=== PATIENT | male | born 1960 | race Hispanic/Latino ===

== ENCOUNTER 2022-01-08 23:34 | Inpatient (IN) | payer BC ==
[2022-01-09] MEDS ORDERED: ONDANSETRON 4 MG/2 ML INJ IV ONE (06:57)
[2022-01-09] MEDS ORDERED: MORPHINE 4 MG/1 ML INJ IV ONE (06:57)
[2022-01-09] MEDS ORDERED: SODIUM CHLORIDE 0.9% 1000 ML 1,000 ML IV ONE ×2 (06:58→10:57)
--- NOTE | 2022-01-09 07:08 | Emergency Department Report ---
HPI - General Chief Complaint: Abdominal Pain PUI?: No Time Seen by Provider: 01/09/22 06:52 - HPI HPI: 61-year-old male with prior history of hypertension (patient states he was taking a blood pressure medication by his primary care doctor) presents for evaluation of periumbilical pain radiating to his right lower quadrant. Sy mptoms began acutely last night. Pain is pressure-like constant and radiates to the aforementioned areas. He reports nausea but no vomiting fevers or chills. Last bowel movement was 1 day ago and he states "it was very small." Surgical history to his abdomen is significant for umbilical hernia repair which was performed approximately 4 years ago. No testicular pain. No UTI symptoms. No penile discharge. Abdominal pain has no aggravators or alleviators. No prior history of similar symptoms. Pain currently 8 out of 10. ED Past Medical Hx - Past Medical History Previous Medical History?: Yes Hx Hypertension: Yes - Surgical History Past Surgical History?: Yes Additional Surgical History: Umbilical hernia repair [address] [facility] - Social History Smoking Status: Smoker, Current Status Unknown Substance Use Type: None ED Review of Systems ROS: Stated complaint: RLQ ABD PAIN Other details as noted in HPI Comment: All other systems reviewed and negative Physical Exam - Physical Exam Vital Signs: Vital Signs 01/08/22 23:37 Temperature 98.6 F Pulse Rate 74 Respiratory 16 Rate Blood Pressure 130/76 [Right] O2 Sat by Pulse 98 Oximetry General: Gen: Middle-age male, uncomfortable appearing, groaning, writhing on stretcher, moderate distress secondary to pain HEENT: Normocephalic atraumatic pupils equally round and reactive to light extraocular muscles intact sclera anicteric Neck: Full range of motion, no midline spinal tenderness palpation, no JVD, no carotid bruits, no nuchal rigidity CVS: S1-S2 regular rate and rhythm with no gallops rubs or murmurs, chest wall nontender Pulmonary: Clear to auscultation bilaterally, no wheezes rales or rhonchi Abdomen: Soft nondistended moderate right lower quadrant tenderness palpation with mild guarding and positive rebound tenderness no palpable deformities or step-offs, normal active bowel sounds, no hepatosplenomegaly, no pulsatile masses : Deferred Extremities: No cyanosis no clubbing no edema, intact distal peripheral pulses, Integumentary: Skin normal, no petechia no purpura no abscess no lacerations no evidence of trauma no evidence of infection Neuro: Patient is awake alert and oriented to person place time situation, mentating well, cranial nerves II through XII intact, no focal neurodeficits, sensation grossly tact Psych: Calm cooperative, mood affect normal ED Course Vital Signs 01/08/22 23:37 Temperature 98.6 F Pulse Rate 74 Respiratory 16 Rate Blood Pressure 130/76 [Right] O2 Sat by Pulse 98 Oximetry - Consultations Consultation #1: 01/09/22 10:26 Return call received from Dr. Daniels. She is covering for . I informed her of the patient's presentation, and negative CT scan findings as well as the patient's lab works. I was informed her that the patient is tolerating p.o. here without difficulty. She states that Dr. Guevara is already aware of the case and is reviewing it and will provide an update concerning her recommended disposition for the patient. 10:10am Call received from Dr. Daniels. She states she spoke with Dr. Guevara. Per her verbal report, pt's CT is negative for acute pathology. She advises that if the pt is tolerating PO here, she may be discharged. Pt to f/u with her for outpatient evaluation of her hiatal hernia. She advises that the patient remain on a clear liquids diet. ED Medical Decision Making - Lab Data Result diagrams: 01/09/22 Unknown 01/09/22 Unknown - Medical Decision Making 61-year-old male presents for evaluation of right lower abdominal pain. Vital signs stable. Labs reviewed. CT scan of the abdomen pelvis demonstrates small bowel obstruction. Case reviewed with on-call surgeon, Dr. Daniels. See pedro luis catalan's electronic health record for her documented impression. Prior discussion, patient undergo placement of a nasogastric tube. This was done by the patient's nurse Rosemarie. Patient has been accepted to the hospitalist service for admission by Dr. Bautista. Critical Care Time: No Critical care attestation.: If time is entered above; I have spent that time in minutes in the direct care of this critically ill patient, excluding procedure time. ED Disposition Clinical Impression: Abdominal pain, Small bowel obstruction Disposition: ADMITTED INPATIENT Is pt being admited?: Yes Does the pt Need Aspirin: No Condition: Stable Referrals: PRIMARY CARE, [Primary Care Provider] - 3-5 Days
[2022-01-09 08:23] LABS: Hematocrit 46.6 % (35.5-45.6); Hemoglobin 15.7 gm/dl (11.8-15.2); Mean Corpuscular HGB Conc 34 % (32-34); Mean Corpuscular Volume 83 fl (84-94); Platelet Count 283 K/mm3 (140-440); Red Blood Count 5.59 M/mm3 (3.65-5.03)
[2022-01-09 08:37] LABS: Alanine Aminotransferase 23 units/L (7-56); BUN/Creatinine Ratio 18; Blood Urea Nitrogen 16 mg/dL (9-20); Calcium 10.4 mg/dL (8.4-10.2); Hemolysis Index 2
--- NOTE | 2022-01-09 09:19 | Cat Scan Report ---
CT ABDOMEN AND PELVIS WITH INTRAVENOUS CONTRAST INDICATION / CLINICAL INFORMATION: Periumbilical/RLQ pain x 1 day; r/o acute appendicitis. TECHNIQUE: 100 cc Omnipaque [address] scans at this location are performed using CT d ose reduction for ALARA by means of automated exposure control. COMPARISON: None available. FINDINGS: ABDOMEN: The stomach and proximal to mid small bowel are moderately dilated and fluid-filled. There i s a transition point in the upper pelvis near the midline anteriorly. No mass or bowel wall thickenin g are present. There is mild soft tissue stranding in the mesenteric fat with a trace amount of mesen teric fluid. Minimal small bowel feces is noted proximal to the transition point. I see no evidence o f free air. The liver, spleen, gallbladder, bile ducts, pancreas, adrenal glands and kidneys demonstrate no signi ficant abnormality. No adenopathy is present. No acute vascular abnormality is seen. The lung bases a re clear. PELVIS: The distal ureters, urinary bladder, prostate gland and seminal vesicles are normal. A normal appendix is present. There are multiple left colonic diverticula without acute inflammation. No abno rmal mass or fluid collection is seen. I do not identify a hernia. There are surgical changes in the lower lumbar spine. No acute osseous abnormality is present. IMPRESSION: 1. Moderate grade mid small bowel obstruction without a cause seen, likely related to adhesions. 2. No CT evidence of acute appendicitis. Signer Name: Jordan Hanley MD Signed: 01/09/2022 9:14 AM Workstation Name: [id number]
[2022-01-09 09:46] LABS: Basophils % (Manual) 0 % (0.0-1.8); Eosinophils % (Manual) 0 % (0.0-4.3); Total Cells Counted 100
[2022-01-09 09:47] LABS: Platelet Estimate Consistent w Auto; RBC Morphology Normal
--- NOTE | 2022-01-09 10:12 | Consultation ---
History of Present Illness Consult date: 01/09/22 Reason for consult: abdominal pain - History of present illness History of present illness: 61-year-old male presented to the emergency room with a 1 day history of acute onset of abdominal pain. Pain was localized mainly periumbilically into the right lower quadrant. It was rated 8 out of 10. He said he was nauseous but cannot vomit and has not had any flatus or normal bowel movement in over 24 hours. Patient said he had similar symptoms approximately 3 years ago where he was diagnosed with a small bowel obstruction and was treated conservatively with NG tube management. Patient had a CT scan of the abdomen and pelvis that showed a moderate small bowel obstruction with a transition point somewhere in the mid abdomen likely due to adhesive disease. Patient has had an NG tube since I spoke with the ER physician he says that he is feeling much better with less abdominal pain and thinks he has passed a little flatus. Patient said his previous bowel obstruction happened approximately 6 months to a year after lapa roscopic ventral hernia repair. Past History Past Medical History: hypertension Past Surgical History: Other (Ventral hernia repair laparoscopic with mesh) Social history: no significant social history Medications and Allergies Allergies Allergy/AdvReac Type Severity Reaction Status Date / Time amantadine Allergy Unknown Verified 01/08/22 23:39 Review of Systems All systems: negative - Constitutional poor appetite - Cardiovascular no chest pain - Respiratory no shortness of breath - Gastrointestinal abdominal pain, nausea - Genitourinary no dysuria Exam Vital Signs Temp Pulse Resp BP Pulse Ox 98.6 F 74 16 130/76 98 01/08/22 23:37 01/08/22 23:37 01/08/22 23:37 01/08/22 23:37 01/08/22 23:37 - General physical appearance Positive: well developed, no distress, no pain - Eyes Positive: PERRL. Negative: icteric - Respiratory Positive: normal expansion, normal respiratory effort - Cardiovascular Heart Sounds: Present: S1 & S2 - Abdomen Abdomen: Present: soft, other (Approximately 400 cc of light brown contents in NG tube and canister). Absent: tender, distended, guarding, rigid - Neurologic Neurologic: alert and oriented to time, place and person, motor strength and sensation are grossly intact - Psychiatric Psychiatric: appropriate mood/affect, intact judgment & insight Results - Labs 01/09/22 Unknown 01/09/22 Unknown Abnormal lab results 01/09/22 01/09/22 Range/Units Unknown Unknown RBC 5.59 H (3.65-5.03) M/mm3 Hgb 15.7 H (11.8-15.2) gm/dl Hct 46.6 H (35.5-45.6) % MCV 83 L (84-94) fl Seg Neuts % (Manual) 94.0 H (40.0-70.0) % Lymphocytes % (Manual) 4.0 L (13.4-35.0) % Seg Neutrophils # Man 8.1 H (1.8-7.7) K/mm3 Lymphocytes # (Manual) 0.3 L (1.2-5.4) K/mm3 Sodium 146 H (137-145) mmol/L Glucose 169 H (75-100) mg/dL Calcium 10.4 H (8.4-10.2) mg/dL Diabetes panel 01/09/22 Range/Units Unknown Sodium 146 H (137-145) mmol/L Potassium 4.7 (3.6-5.0) mmol/L Chloride 106.7 (98-107) mmol/L Carbon Dioxide 28 (22-30) mmol/L BUN 16 (9-20) mg/dL Creatinine 0.9 (0.8-1.3) mg/dL Glucose 169 H (75-100) mg/dL Calcium 10.4 H (8.4-10.2) mg/dL AST 18 (5-40) units/L ALT 23 (7-56) units/L Alkaline Phosphatase 60 (35-129) units/L Total Protein 6.8 (6.3-8.2) g/dL Albumin 5.0 (3.9-5) g/dL Calcium panel 01/09/22 Range/Units Unknown Calcium 10.4 H (8.4-10.2) mg/dL Albumin 5.0 (3.9-5) g/dL Pituitary panel 01/09/22 Range/Units Unknown Sodium 146 H (137-145) mmol/L Potassium 4.7 (3.6-5.0) mmol/L Chloride 106.7 (98-107) mmol/L Carbon Dioxide 28 (22-30) mmol/L BUN 16 (9-20) mg/dL Creatinine 0.9 (0.8-1.3) mg/dL Glucose 169 H (75-100) mg/dL Calcium 10.4 H (8.4-10.2) mg/dL Adrenal panel 01/09/22 Range/Units Unknown Sodium 146 H (137-145) mmol/L Potassium 4.7 (3.6-5.0) mmol/L Chloride 106.7 (98-107) mmol/L Carbon Dioxide 28 (22-30) mmol/L BUN 16 (9-20) mg/dL Creatinine 0.9 (0.8-1.3) mg/dL Glucose 169 H (75-100) mg/dL Calcium 10.4 H (8.4-10.2) mg/dL Total Bilirubin 0.40 (0.1-1.2) mg/dL AST 18 (5-40) units/L ALT 23 (7-56) units/L Alkaline Phosphatase 60 (35-129) units/L Total Protein 6.8 (6.3-8.2) g/dL Albumin 5.0 (3.9-5) g/dL - Imaging CT scan - abdomen: report reviewed, image reviewed CT scan - pelvis: report reviewed, image reviewed Assessment and Plan 61-year-old male with acute small bowel obstruction likely due to adhesive disease due to history and previous episode. Patient is afebrile and stable showing no gross clinical signs of bowel ischemia or perforation. We will continue conservative management with NG tube. Repeat abdominal x-ray in a.m. and continue to follow. If patient decompensates or has minimal improvement over the next 48 to 72 hours surgical intervention should be strongly considered. Pathology and treatment options were discussed with the patient expressed understanding.
--- NOTE | 2022-01-09 11:06 | XRay Report ---
ABDOMEN 1 VIEW(S) INDICATION / CLINICAL INFORMATION: placement check. COMPARISON: None available. FINDINGS: TUBES / LINES: Nasogastric tube is been inserted which terminates in the gastric fundus BOWEL GAS PATTERN: Persistent dilated stomach and multiple small bowel loops suggesting partial small bowel obstruction. Not significantly changed since the CT performed earlier today. FREE AIR / EXTRALUMINAL GAS: None seen. ADDITIONAL FINDINGS: No significant additional findings. IMPRESSION: Nasogastric tube terminates in the fundus of the stomach. Persistent partial small bowel obstruction pattern. Signer Name: Julio Fleming Jr, MD Signed: 01/09/2022 11:02 AM Workstation Name: [id number]
[2022-01-09] MEDS ORDERED: KETOROLAC 30 MG/1 ML INJ IV ONE (16:46)
[2022-01-09] MEDS ORDERED: D5W/0.9% NACL 1,000 ML IV SCH (17:00)
[2022-01-09] MEDS ORDERED: MORPHINE 2 MG/1 ML INJ IV PRN (17:00)
[2022-01-09] MEDS ORDERED: ACETAMINOPHEN 650 MG RECT SUPP PR PRN (17:30)
[2022-01-09] MEDS ORDERED: ONDANSETRON 4 MG/2 ML INJ IV PRN (17:30)
[2022-01-09 21:02] LABS: Mucus,Urine FEW /HPF; WBC,Urine < 1.0 /HPF (0.0-6.0)
[2022-01-09 21:09] LABS: Color,Urine Yellow (Yellow)
[2022-01-09] MEDS: HEPARIN 5,000 UNIT/1 ML VIAL SUB-Q SCH (21:16)
--- NOTE | 2022-01-10 06:42 | History and Physical Report ---
History of Present Illness Date of examination: 01/09/22 Date of admission: 01/09/22 16:35 Chief complaint: Abdominal pain and vomiting for 1 day History of present illness: 61-year-old male with past medical history of hypertension and umbilical hernia surgery followed by elevation and history of small bowel obstruction recently comes in for abdominal pain and nausea. Abdominal pain is about 8 on a scale of 1-10. Intermittent in nature. Last bowel movement was 1 day ago. Unlikely hernia repair was performed approximately 4 years ago. Had 1 episode of small bowel obstruction few months ago. Patient not able to review the timeline. Reports nausea but no vomiting. No fever or chills. No dysuria. No altered sensorium. No chest pain. - Past Medical History --Hypertension: Yes - Surgical History --Past Surgical History?: Yes --Additional Surgical History: Umbilical hernia repair 4 years ago at - Social History --Smoking Status: Smoker, Current Status Unknown --Substance Use Type: None -Family history --Htn Review of Systems --ROS: -Constitutional no weight loss or weight gain no fever or chills HEENT no sore throat no post nasal drip no diplopia Neck no neck stiffness no lymph gland enlargement Chest and lungs no shortness of breath cough or wheezing CVS no chest pain no diaphoresis no palpitations GI severe abdominal pain with nausea Genitourinary system no dysuria no flank pain Musculoskeletal system no muscle pains no joint pains CSO no syncope no seizures Skin no rash no itching Psychiatric no depression no homicidal or suicidal tendencies Hematologic no lymphedema or bruising Endocrine no polydipsia no polyuria no cold intolerance no heat intolerance Past History Past Medical History: hypertension Past Surgical History: Other (Ventral hernia repair laparoscopic with mesh) Social history: no significant social history Medications and Allergies Allergies Allergy/AdvReac Type Severity Reaction Status Date / Time amantadine Allergy Unknown Verified 01/08/22 23:39 Home Medications Medication Instructions Recorded Confirmed Last Taken Type No Known Home Medications [No 01/10/22 01/10/22 Unknown History Reported Home Medications] Active Meds: Active Medications Acetaminophen (Acetaminophen 650 Mg Rect Supp) 650 mg MI Q4H PRN PRN Reason: Pain MILD(1-3)/Fever >100.5/KAN Heparin Sodium (Porcine) (Heparin 5,000 Unit/1 Ml Vial) 5,000 unit SUB-Q Q12HR [facility] Last Admin: 01/09/22 21:16 Dose: 5,000 unit Lactated Ringer's (Lactated Ringers) 1,000 mls @ 125 mls/hr IV DIRECT BESS Dextrose/Sodium Chloride (D5ns) 1,000 mls @ 100 mls/hr IV DIRECT BESS Last Admin: 01/09/22 22:45 Dose: 100 mls/hr Morphine Sulfate (Morphine 2 Mg/1 Ml Inj) 2 mg IV Q4H PRN PRN Reason: Pain, Moderate (4-6) Ondansetron HCl (Ondansetron 4 Mg/2 Ml Inj) 4 mg IV Q8H PRN PRN Reason: Nausea And Vomiting Sodium Chloride (Sodium Chloride 0.9% 10 Ml Flush Syringe) 10 ml IV BID [facility] Last Admin: 01/09/22 22:46 Dose: 10 ml Sodium Chloride (Sodium Chloride 0.9% 10 Ml Flush Syringe) 10 ml IV PRN PRN PRN Reason: LINE FLUSH Stop: 01/14/22 16:34 Exam - Constitutional Vitals: Temp Pulse Resp BP Pulse Ox 98.1 F 64 18 135/84 99 01/10/22 05:30 01/10/22 05:30 01/10/22 05:30 01/10/22 05:30 01/10/22 05:30 General appearance: Present: mild distress, well-nourished - EENT Eyes: Present: PERRL ENT: hearing intact, clear oral mucosa - Neck Neck: Present: supple, normal ROM - Respiratory Respiratory effort: normal Respiratory: bilateral: CTA - Cardiovascular Heart rate: 88 Rhythm: regular Heart Sounds: Present: S1 & S2. Absent: rub, click - Extremities Extremities: no ischemia, pulses intact, pulses symmetrical, No edema Peripheral Pulses: within normal limits - Abdominal General gastrointestinal: Present: soft, non-tender, tender, distended, hypoactive bowel sounds Male genitourinary: Present: normal - Integumentary Integumentary: Present: clear, warm, dry - Musculoskeletal Musculoskeletal: gait normal, strength equal bilaterally - Psychiatric Psychiatric: appropriate mood/affect, intact judgment & insight - Neurologic Neurologic: CNII-XII intact, moves all extremities - Allied Health Allied health notes reviewed: nursing Results - Labs CBC & Chem 7: 01/09/22 Unknown 01/09/22 Unknown Labs: Laboratory Last Values WBC 8.6 K/mm3 (4.5-11.0) 01/09/22 Unknown RBC 5.59 M/mm3 (3.65-5.03) H 01/09/22 Unknown Hgb 15.7 gm/dl (11.8-15.2) H 01/09/22 Unknown Hct 46.6 % (35.5-45.6) H 01/09/22 Unknown MCV 83 fl (84-94) L 01/09/22 Unknown MCH 28 pg (28-32) 01/09/22 Unknown MCHC 34 % (32-34) 01/09/22 Unknown RDW 14.0 % (13.2-15.2) 01/09/22 Unknown Plt Count 283 K/mm3 (140-440) 01/09/22 Unknown Add Manual Diff Complete 01/09/22 Unknown Total Counted 100 01/09/22 Unknown Seg Neutrophils % Scale Tester 01/09/22 Unknown Seg Neuts % (Manual) 94.0 % (40.0-70.0) H 01/09/22 Unknown Band Neutrophils % 0 % 01/09/22 Unknown Lymphocytes % (Manual) 4.0 % (13.4-35.0) L 01/09/22 Unknown Reactive Lymphs % (Man) 0 % 01/09/22 Unknown Monocytes % (Manual) 2.0 % (0.0-7.3) 01/09/22 Unknown Eosinophils % (Manual) 0 % (0.0-4.3) 01/09/22 Unknown Basophils % (Manual) 0 % (0.0-1.8) 01/09/22 Unknown Metamyelocytes % 0 % 01/09/22 Unknown Myelocytes % 0 % 01/09/22 Unknown Promyelocytes % 0 % 01/09/22 Unknown Blast Cells % 0 % 01/09/22 Unknown Nucleated RBC % Not Reportable 01/09/22 Unknown Seg Neutrophils # Man 8.1 K/mm3 (1.8-7.7) H 01/09/22 Unknown Band Neutrophils # 0.0 K/mm3 01/09/22 Unknown Lymphocytes # (Manual) 0.3 K/mm3 (1.2-5.4) L 01/09/22 Unknown Abs React Lymphs (Man) 0.0 K/mm3 01/09/22 Unknown Monocytes # (Manual) 0.2 K/mm3 (0.0-0.8) 01/09/22 Unknown Eosinophils # (Manual) 0.0 K/mm3 (0.0-0.4) 01/09/22 Unknown Basophils # (Manual) 0.0 K/mm3 (0.0-0.1) 01/09/22 Unknown Metamyelocytes # 0.0 K/mm3 01/09/22 Unknown Myelocytes # 0.0 K/mm3 01/09/22 Unknown Promyelocytes # 0.0 K/mm3 01/09/22 Unknown Blast Cells # 0.0 K/mm3 01/09/22 Unknown WBC Morphology Not Reportable 01/09/22 Unknown Hypersegmented Neuts Not Reportable 01/09/22 Unknown Hyposegmented Neuts Not Reportable 01/09/22 Unknown Hypogranular Neuts Not Reportable 01/09/22 Unknown Smudge Cells Not Reportable 01/09/22 Unknown Toxic Granulation Not Reportable 01/09/22 Unknown Toxic Vacuolation Not Reportable 01/09/22 Unknown Dohle Bodies Not Reportable 01/09/22 Unknown Pelger-Huet Anomaly Not Reportable 01/09/22 Unknown Alvaro Rods Not Reportable 01/09/22 Unknown Platelet Estimate Consistent w auto 01/09/22 Unknown Clumped Platelets Not Reportable 01/09/22 Unknown Plt Clumps, EDTA Not Reportable 01/09/22 Unknown Large Platelets Not Reportable 01/09/22 Unknown Giant Platelets Not Reportable 01/09/22 Unknown Platelet Satelliting Not Reportable 01/09/22 Unknown Plt Morphology Comment Not Reportable 01/09/22 Unknown RBC Morphology Normal 01/09/22 Unknown Dimorphic RBCs Not Reportable 01/09/22 Unknown Polychromasia Not Reportable 01/09/22 Unknown Hypochromasia Not Reportable 01/09/22 Unknown Poikilocytosis Not Reportable 01/09/22 Unknown Anisocytosis Not Reportable 01/09/22 Unknown Microcytosis Not Reportable 01/09/22 Unknown Macrocytosis Not Reportable 01/09/22 Unknown Spherocytes Not Reportable 01/09/22 Unknown Pappenheimer Bodies Not Reportable 01/09/22 Unknown Sickle Cells Not Reportable 01/09/22 Unknown Target Cells Not Reportable 01/09/22 Unknown Tear Drop Cells Not Reportable 01/09/22 Unknown Ovalocytes Not Reportable 01/09/22 Unknown Helmet Cells Not Reportable 01/09/22 Unknown [place] Bodies Not Reportable 01/09/22 Unknown [place] Rings Not Reportable 01/09/22 Unknown El Cells Not Reportable 01/09/22 Unknown Bite Cells Not Reportable 01/09/22 Unknown Crenated Cell Not Reportable 01/09/22 Unknown Elliptocytes Not Reportable 01/09/22 Unknown Acanthocytes (Spur) Not Reportable 01/09/22 Unknown Rouleaux Not Reportable 01/09/22 Unknown Hemoglobin C Crystals Not Reportable 01/09/22 Unknown Schistocytes Not Reportable 01/09/22 Unknown Malaria parasites Not Reportable 01/09/22 Unknown Greg Bodies Not Reportable 01/09/22 Unknown Hem Pathologist Commnt No 01/09/22 Unknown Sodium 146 mmol/L (137-145) H 01/09/22 Unknown Potassium 4.7 mmol/L (3.6-5.0) 01/09/22 Unknown Chloride 106.7 mmol/L (98-107) 01/09/22 Unknown Carbon Dioxide 28 mmol/L (22-30) 01/09/22 Unknown Anion Gap 16 mmol/L 01/09/22 Unknown BUN 16 mg/dL (9-20) 01/09/22 Unknown Creatinine 0.9 mg/dL (0.8-1.3) 01/09/22 Unknown Estimated GFR > 60 ml/min 01/09/22 Unknown BUN/Creatinine Ratio 18 % 01/09/22 Unknown Glucose 169 mg/dL (75-100) H 01/09/22 Unknown Calcium 10.4 mg/dL (8.4-10.2) H 01/09/22 Unknown Total Bilirubin 0.40 mg/dL (0.1-1.2) 01/09/22 Unknown AST 18 units/L (5-40) 01/09/22 Unknown ALT 23 units/L (7-56) 01/09/22 Unknown Alkaline Phosphatase 60 units/L (35-129) 01/09/22 Unknown Total Protein 6.8 g/dL (6.3-8.2) 01/09/22 Unknown Albumin 5.0 g/dL (3.9-5) 01/09/22 Unknown Albumin/Globulin Ratio 2.8 % 01/09/22 Unknown Urine Color Yellow (Yellow) 01/09/22 Unknown Urine Turbidity Clear (Clear) 01/09/22 Unknown Specific [place] (Man) 1.015 (1.003-1.030) 01/09/22 Unknown Ur Protein (Man) 1+ mg/dL (Negative) 01/09/22 Unknown Ur Ketones (Man) Negative (Negative) 01/09/22 Unknown Ur Nitrite (Man) Negative (Negative) 01/09/22 Unknown Ur Reducing Substances Not Reportable 01/09/22 Unknown Urine Bilirubin (Man) Negative (Negative) 01/09/22 Unknown Urine Ictotest Not Reportable 01/09/22 Unknown Leukocyte Esterase (Man) Negative (Negative) 01/09/22 Unknown Urine WBC (Auto) < 1.0 /HPF (0.0-6.0) 01/09/22 Unknown Urine RBC (Auto) 2.0 /HPF (0.0-6.0) 01/09/22 Unknown Urine RBC (Manual) Negative (Negative) 01/09/22 Unknown Urine Mucus Few /HPF 01/09/22 Unknown Short CBC 01/09/22 Range/Units Unknown WBC 8.6 (4.5-11.0) K/mm3 Hgb 15.7 H (11.8-15.2) gm/dl Hct 46.6 H (35.5-45.6) % Plt Count 283 (140-440) K/mm3 BMP 01/09/22 Unknown Sodium 146 H Potassium 4.7 Chloride 106.7 Carbon Dioxide 28 BUN 16 Creatinine 0.9 Glucose 169 H Calcium 10.4 H Liver Function 01/09/22 Range/Units Unknown Total Bilirubin 0.40 (0.1-1.2) mg/dL AST 18 (5-40) units/L ALT 23 (7-56) units/L Alkaline Phosphatase 60 (35-129) units/L Albumin 5.0 (3.9-5) g/dL Urine 01/09/22 Range/Units Unknown Urine Color Yellow (Yellow) - Imaging and Cardiology Abdominal x-ray: report reviewed CT scan - abdomen: report reviewed Imaging and Cardiology: Abdomen/pelvis CT scan Moderate grade mild mid small bowel obstruction without a cause seen likely re lated to adhesions No CT evidence of acute appendicitis Abdominal x-ray Nasogastric tube terminates in the fundus of the stomach. Persistent partial small bowel obstruction pattern. Poe/IV: Voiding Method Toilet Assessment and Plan Advance Directives: Yes (Full code) VTE prophylaxis?: Chemical Plan of care discussed with patient/family: Yes - Patient Problems (1) Small bowel obstruction Current Visit: Yes Status: Acute Plan to address problem: NG tube to low Gomco suction Surgery consulted Possible additions causing small bowel obstruction Conservative management for now Surgery if necessary for lysis of additions (2) Hypernatremia Current Visit: Yes Status: Acute Plan to address problem: IV fluids for now (3) Hyperglycemia Current Visit: Yes Status: Acute Plan to address problem: Mild No history of diabetes Coverage for now Check hemoglobin A1c (4) Polycythemia due to fall in plasma volume Current Visit: Yes Status: Acute Plan to address problem: IV fluids for now (5) Hypertension Current Visit: Yes Status: Chronic Qualifiers: Hypertension type: primary hypertension Qualified Code(s): I10 - Essential (primary) hypertension Plan to address problem: Catapres patch if necessary Patient is n.p.o. (6) DVT prophylaxis Current Visit: Yes Status: Acute Plan to address problem: On heparin and GI prophylaxis (7) Advance care planning Current Visit: Yes Status: Acute Plan to address problem: Disease education conducted, care plan discussed, prognosis and diagnosis disc ussed. Patient is full code. Patient acknowledges understanding with care plan. +30 minutes.
--- NOTE | 2022-01-10 08:30 | XRay Report ---
ABDOMEN 1 VIEW 01/10/2022 8:06 AM INDICATION / CLINICAL INFORMATION: f/u sbo. COMPARISON: 01/09/22 FINDINGS: TUBES / LINES: Esophagogastric tube in the distal stomach. BOWEL GAS PATTERN: Interval improvement in mildly dilated loops of small bowel. Normal amount of gas and fecal material in the rectum. FREE AIR / EXTRALUMINAL GAS: None. ADDITIONAL FINDINGS: No significant additional findings. IMPRESSION: 1. Interval improvement in small bowel obstruction. Signer Name: Suleman Anderson MD Signed: 01/10/2022 8:26 AM Workstation Name: [id number]
--- NOTE | 2022-01-10 08:39 | Progress Note ---
Assessment and Plan Assessment and plan: 61-year-old male with past medical history of hypertension and umbilical hernia surgery followed by elevation and history of small bowel obstruction recently comes in for abdominal pain and nausea. Abdominal pain is about 8 on a scale of 1-10. Intermittent in nature. Last bowel movement was 1 day ago. Unlikely hernia repair was performed approximately 4 years ago. Had 1 episode of small bowel obstruction few months ago. Patient not able to review the timeline. Reports nausea but no vomiting. No fever or chills. No dysuria. No altered sensorium. No chest pain. - Past Medical History --Hypertension: Yes - Surgical History --Past Surgical History?: Yes --Additional Surgical History: Umbilical hernia repair 4 years ago at [facility] - Social History --Smoking Status: Smoker, Current Status Unknown --Substance Use Type: None - Imaging and Cardiology Abdominal x-ray: report reviewed CT scan - abdomen: report reviewed Imaging and Cardiology: Abdomen/pelvis CT scan Moderate grade mild mid small bowel obstruction without a cause seen likely related to adhesions No CT evidence of acute appendicitis Abdominal x-ray Nasogastric tube terminates in the fundus of the stomach. Persistent partial small bowel obstruction pattern. 01/10: KUB- IMPRESSION: 1. Interval improvement in small bowel obstruction. per surgery recommendation: 61-year-old male with acute small bowel obstruction likely due to adhesive disease due to history and previous episode. Patient is afebrile and stable showing no gross clinical signs of bowel ischemia or perforation. We will cont inue conservative management with NG tube. Repeat abdominal x-ray in a.m. and continue to follow. If patient decompensates or has minimal improvement over the next 48 to 72 hours surgical intervention should be strongly considered. Pathology and treatment options were discussed with the patient expressed understanding. 01/10: Patient seen and examined had extensive discussion with the patient discussed recommendations by GI as noted above. KUB today shows interval improvement in small bowel obstruction. Encourage patient to ambulate in the room within reason. We will continue to monitor and hopefully will transition off the NG tube on diet as soon as possible. (1) Small bowel obstruction Current Visit: Yes Status: Acute Plan to address problem: NG tube to low Gomco suction Surgery consulted Possible additions causing small bowel obstruction Conservative management for now Surgery if necessary for lysis of additions (2) Hypernatremia Current Visit: Yes Status: Acute Plan to address problem: IV fluids for now (3) Hyperglycemia Current Visit: Yes Status: Acute Plan to address problem: Mild No history of diabetes Coverage for now Check hemoglobin A1c (4) Polycythemia due to fall in plasma volume Current Visit: Yes Status: Acute Plan to address problem: IV fluids for now (5) Hypertension Current Visit: Yes Status: Chronic Qualifiers: Hypertension type: primary hypertension Qualified Code(s): I10 - Essential (primary) hypertension Plan to address problem: Catapres patch if necessary Patient is n.p.o. (6) DVT prophylaxis Current Visit: Yes Status: Acute Plan to address problem: On heparin and GI prophylaxis (7) Advance care planning Current Visit: Yes Status: Acute Plan to address problem: Disease education conducted, care plan discussed, prognosis and diagnosis discussed. Patient is full code. Patient acknowledges understanding with care plan. +30 minutes. History Interval history: Patient seen and examined reports improvement in abdominal discomfort reports that he has had multiple gas episode. Hospitalist Physical - Physical exam Narrative exam: VITAL SIGNS: Reviewed. GENERAL: The patient appears normally developed, NG tube in place. Vital signs as documented. HEAD: No signs of head trauma. EYES: Pupils are equal. Extraocular motions intact. EARS: Hearing grossly intact. MOUTH: Oropharynx is normal. NECK: No adenopathy, no JVD. CHEST: Chest with clear breath sounds bilaterally. No wheezes, rales, or rhonchi. CARDIAC: Regular rate and rhythm. S1 and S2, without murmurs, gallops, or rubs. VASCULAR: No Edema. Peripheral pulses normal and equal in all extremities. ABDOMEN: Soft, non tender and non distended. No rebound or guarding, and no masses palpated. Bowel Sounds normal. MUSCULOSKELETAL: Good range of motion of all major joints. Extremities without clubbing, cyanosis or edema. NEUROLOGIC EXAM: Alert and oriented x 3 No focal sensory or strength de ficits. Speech normal. Follows commands. PSYCHIATRIC: Mood normal. SKIN: detail exam as documented in skin assessment - Constitutional Vitals: Temp Pulse Resp BP Pulse Ox 98.1 F 64 18 135/84 99 01/10/22 05:30 01/10/22 05:30 01/10/22 05:30 01/10/22 05:30 01/10/22 05:30 General appearance: Present: mild distress, well-nourished Results - Labs CBC & Chem 7: 01/10/22 08:27 01/10/22 08:27 Labs: Laboratory Last Values WBC 8.6 K/mm3 (4.5-11.0) 01/09/22 Unknown RBC 5.59 M/mm3 (3.65-5.03) H 01/09/22 Unknown Hgb 15.7 gm/dl (11.8-15.2) H 01/09/22 Unknown Hct 46.6 % (35.5-45.6) H 01/09/22 Unknown MCV 83 fl (84-94) L 01/09/22 Unknown MCH 28 pg (28-32) 01/09/22 Unknown MCHC 34 % (32-34) 01/09/22 Unknown RDW 14.0 % (13.2-15.2) 01/09/22 Unknown Plt Count 283 K/mm3 (140-440) 01/09/22 Unknown Add Manual Diff Complete 01/09/22 Unknown Total Counted 100 01/09/22 Unknown Seg Neutrophils % Debt Recovery Officer 01/09/22 Unknown Seg Neuts % (Manual) 94.0 % (40.0-70.0) H 01/09/22 Unknown Band Neutrophils % 0 % 01/09/22 Unknown Lymphocytes % (Manual) 4.0 % (13.4-35.0) L 01/09/22 Unknown Reactive Lymphs % (Man) 0 % 01/09/22 Unknown Monocytes % (Manual) 2.0 % (0.0-7.3) 01/09/22 Unknown Eosinophils % (Manual) 0 % (0.0-4.3) 01/09/22 Unknown Basophils % (Manual) 0 % (0.0-1.8) 01/09/22 Unknown Metamyelocytes % 0 % 01/09/22 Unknown Myelocytes % 0 % 01/09/22 Unknown Promyelocytes % 0 % 01/09/22 Unknown Blast Cells % 0 % 01/09/22 Unknown Nucleated RBC % Not Reportable 01/09/22 Unknown Seg Neutrophils # Man 8.1 K/mm3 (1.8-7.7) H 01/09/22 Unknown Band Neutrophils # 0.0 K/mm3 01/09/22 Unknown Lymphocytes # (Manual) 0.3 K/mm3 (1.2-5.4) L 01/09/22 Unknown Abs React Lymphs (Man) 0.0 K/mm3 01/09/22 Unknown Monocytes # (Manual) 0.2 K/mm3 (0.0-0.8) 01/09/22 Unknown Eosinophils # (Manual) 0.0 K/mm3 (0.0-0.4) 01/09/22 Unknown Basophils # (Manual) 0.0 K/mm3 (0.0-0.1) 01/09/22 Unknown Metamyelocytes # 0.0 K/mm3 01/09/22 Unknown Myelocytes # 0.0 K/mm3 01/09/22 Unknown Promyelocytes # 0.0 K/mm3 01/09/22 Unknown Blast Cells # 0.0 K/mm3 01/09/22 Unknown WBC Morphology Not Reportable 01/09/22 Unknown Hypersegmented Neuts Not Reportable 01/09/22 Unknown Hyposegmented Neuts Not Reportable 01/09/22 Unknown Hypogranular Neuts Not Reportable 01/09/22 Unknown Smudge Cells Not Reportable 01/09/22 Unknown Toxic Granulation Not Reportable 01/09/22 Unknown Toxic Vacuolation Not Reportable 01/09/22 Unknown Dohle Bodies Not Reportable 01/09/22 Unknown Pelger-Huet Anomaly Not Reportable 01/09/22 Unknown Alvaro Rods Not Reportable 01/09/22 Unknown Platelet Estimate Consistent w auto 01/09/22 Unknown Clumped Platelets Not Reportable 01/09/22 Unknown Plt Clumps, EDTA Not Reportable 01/09/22 Unknown Large Platelets Not Reportable 01/09/22 Unknown Giant Platelets Not Reportable 01/09/22 Unknown Platelet Satelliting Not Reportable 01/09/22 Unknown Plt Morphology Comment Not Reportable 01/09/22 Unknown RBC Morphology Normal 01/09/22 Unknown Dimorphic RBCs Not Reportable 01/09/22 Unknown Polychromasia Not Reportable 01/09/22 Unknown Hypochromasia Not Reportable 01/09/22 Unknown Poikilocytosis Not Reportable 01/09/22 Unknown Anisocytosis Not Reportable 01/09/22 Unknown Microcytosis Not Reportable 01/09/22 Unknown Macrocytosis Not Reportable 01/09/22 Unknown Spherocytes Not Reportable 01/09/22 Unknown Pappenheimer Bodies Not Reportable 01/09/22 Unknown Sickle Cells Not Reportable 01/09/22 Unknown Target Cells Not Reportable 01/09/22 Unknown Tear Drop Cells Not Reportable 01/09/22 Unknown Ovalocytes Not Reportable 01/09/22 Unknown Helmet Cells Not Reportable 01/09/22 Unknown [place] Bodies Not Reportable 01/09/22 Unknown Jolley Rings Not Reportable 01/09/22 Unknown Delta Cells Not Reportable 01/09/22 Unknown Bite Cells Not Reportable 01/09/22 Unknown Crenated Cell Not Reportable 01/09/22 Unknown Elliptocytes Not Reportable 01/09/22 Unknown Acanthocytes (Spur) Not Reportable 01/09/22 Unknown Rouleaux Not Reportable 01/09/22 Unknown Hemoglobin C Crystals Not Reportable 01/09/22 Unknown Schistocytes Not Reportable 01/09/22 Unknown Malaria parasites Not Reportable 01/09/22 Unknown Greg Bodies Not Reportable 01/09/22 Unknown Hem Pathologist Commnt No 01/09/22 Unknown Sodium 146 mmol/L (137-145) H 01/09/22 Unknown Potassium 4.7 mmol/L (3.6-5.0) 01/09/22 Unknown Chloride 106.7 mmol/L (98-107) 01/09/22 Unknown Carbon Dioxide 28 mmol/L (22-30) 01/09/22 Unknown Anion Gap 16 mmol/L 01/09/22 Unknown BUN 16 mg/dL (9-20) 01/09/22 Unknown Creatinine 0.9 mg/dL (0.8-1.3) 01/09/22 Unknown Estimated GFR > 60 ml/min 01/09/22 Unknown BUN/Creatinine Ratio 18 % 01/09/22 Unknown Glucose 169 mg/dL (75-100) H 01/09/22 Unknown Calcium 10.4 mg/dL (8.4-10.2) H 01/09/22 Unknown Total Bilirubin 0.40 mg/dL (0.1-1.2) 01/09/22 Unknown AST 18 units/L (5-40) 01/09/22 Unknown ALT 23 units/L (7-56) 01/09/22 Unknown Alkaline Phosphatase 60 units/L (35-129) 01/09/22 Unknown Total Protein 6.8 g/dL (6.3-8.2) 01/09/22 Unknown Albumin 5.0 g/dL (3.9-5) 01/09/22 Unknown Albumin/Globulin Ratio 2.8 % 01/09/22 Unknown Urine Color Yellow (Yellow) 01/09/22 Unknown Urine Turbidity Clear (Clear) 01/09/22 Unknown Specific Iron (Man) 1.015 (1.003-1.030) 01/09/22 Unknown Ur Protein (Man) 1+ mg/dL (Negative) 01/09/22 Unknown Ur Ketones (Man) Negative (Negative) 01/09/22 Unknown Ur Nitrite (Man) Negative (Negative) 01/09/22 Unknown Ur Reducing Substances Not Reportable 01/09/22 Unknown Urine Bilirubin (Man) Negative (Negative) 01/09/22 Unknown Urine Ictotest Not Reportable 01/09/22 Unknown Leukocyte Esterase (Man) Negative (Negative) 01/09/22 Unknown Urine WBC (Auto) < 1.0 /HPF (0.0-6.0) 01/09/22 Unknown Urine RBC (Auto) 2.0 /HPF (0.0-6.0) 01/09/22 Unknown Urine RBC (Manual) Negative (Negative) 01/09/22 Unknown Urine Mucus Few /HPF 01/09/22 Unknown Poe/IV: Voiding Method Toilet Active Medications - Current Medications Current Medications: Generic Name Dose Route Start Last Admin Trade Name Freq PRN Reason Stop Dose Admin Acetaminophen 650 mg 01/09/22 17:30 Acetaminophen 650 Mg Rect Supp AR Q4H PRN Pain MILD(1-3)/Fever >100.5/KAN Heparin Sodium (Porcine) 5,000 unit 01/09/22 22:00 01/09/22 21:16 Heparin 5,000 Unit/1 Ml Vial SUB-Q 5,000 unit Q12HR BESS Administration Lactated Ringer's 1,000 mls @ 125 mls/hr 01/09/22 16:30 Lactated Ringers IV DIRECT BESS Dextrose/Sodium Chloride 1,000 mls @ 100 mls/hr 01/09/22 17:00 01/09/22 22:45 D5ns IV 100 mls/hr DIRECT BESS Administration Insulin Human Lispro 0 unit 01/10/22 07:00 Insulin Lispro 100 Unit/Ml SUB-Q Q6HR BESS Protocol Morphine Sulfate 2 mg 01/09/22 17:00 Morphine 2 Mg/1 Ml Inj IV Q4H PRN Pain, Moderate (4-6) Ondansetron HCl 4 mg 01/09/22 17:30 Ondansetron 4 Mg/2 Ml Inj IV Q8H PRN Nausea And Vomiting Sodium Chloride 10 ml 01/09/22 22:00 01/09/22 22:46 Sodium Chloride 0.9% 10 Ml Flush Syringe IV 10 ml BID BESS Administration Sodium Chloride 10 ml 01/09/22 16:35 Sodium Chloride 0.9% 10 Ml Flush Syringe IV 01/14/22 16:34 PRN PRN LINE FLUSH
[2022-01-10] MEDS: LACTATED RINGERS 1,000 ML IV SCH ×2 (09:05→22:27)
[2022-01-10 10:08] LABS: Basophils # (Auto) 0.1 K/mm3 (0.0-0.1); Basophils % (Auto) 0.8 % (0.0-1.8); Eosinophils # (Auto) 0.1 K/mm3 (0.0-0.4); Eosinophils % (Auto) 1.6 % (0.0-4.3); Hematocrit 42.3 % (35.5-45.6); Lymphocytes # (Auto) 1.1 K/mm3 (1.2-5.4); Lymphocytes % (Auto) 16.3 % (13.4-35.0); Mean Corpuscular HGB Conc 33 % (32-34); Mean Corpuscular Volume 85 fl (84-94); Monocytes # (Auto) 0.4 K/mm3 (0.0-0.8); Monocytes % (Auto) 6.3 % (0.0-7.3); Platelet Count 227 K/mm3 (140-440); Red Blood Count 4.99 M/mm3 (3.65-5.03); Red Cell Distribution Width 14.3 % (13.2-15.2)
[2022-01-10 10:25] LABS: Alanine Aminotransferase 17 units/L (7-56); Albumin 3.9 g/dL (3.9-5); BUN/Creatinine Ratio 12; Blood Urea Nitrogen 13 mg/dL (9-20); Calcium 8.8 mg/dL (8.4-10.2); Hemolysis Index 6
[2022-01-10] MEDS: INSULIN LISPRO 100 UNIT/ML SUB-Q SCH ×3 (10:25→19:30)
[2022-01-10] MEDS: HEPARIN 5,000 UNIT/1 ML VIAL SUB-Q SCH ×2 (10:39→22:27)
--- NOTE | 2022-01-10 13:45 | Progress Note ---
Assessment and Plan 61-year-old male with acute small bowel obstruction likely due to adhesive disease due to history and previous episode. Patient is afebrile and stable showing no gross clinical signs of bowel ischemia or perforation. The patient passing flatus and low NG tube output patient is showing signs of possible improvement in obstruction. We will clamp NG tube and check residuals every 4 hours. We will get small bowel follow series in the morning to document passage of contrast through the small intestine. If patient decompensates or has minimal improvement over the next 48 to 72 hours surgical intervention should be strongly considered. Pathology and treatment options were discussed with the patient expressed understanding. Subjective Date of service: 01/10/22 Patient Reports: Positive: feels better, flatus Narrative: No acute events overnight. Patient says he is passing a significant amount of flatus. He denies any abdominal pain nausea vomiting. Abdominal x-ray from this morning shows improvement in bowel distention with some air in the rectum. Objective Vital Signs - 12hr 01/10/22 01/10/22 01/10/22 05:30 10:58 11:03 Temperature 98.1 F 99.1 F 98.0 F Pulse Rate 64 63 112 H Respiratory 18 20 22 Rate Blood Pressure 135/84 139/88 143/85 O2 Sat by Pulse 99 98 100 Oximetry - General physical appearance well developed, no distress, no pain, obese - Eyes PERRL - ENT no hearing loss - Respiratory normal expansion, normal respiratory effort - Abdomen soft, not tender, not distended, not rebound, not guarding, other (100 cc recor ded out of NG tube overnight. However there are 3 to 400 cc of light brown fluid in the canister.) - Labs 01/10/22 08:27 01/10/22 08:27 Diabetes panel 01/10/22 01/10/22 Range/Units 08:27 08:27 Sodium 146 H (137-145) mmol/L Potassium 4.8 (3.6-5.0) mmol/L Chloride 111.5 H (98-107) mmol/L Carbon Dioxide 29 (22-30) mmol/L BUN 13 (9-20) mg/dL Creatinine 1.1 (0.8-1.3) mg/dL Glucose 108 H (75-100) mg/dL Hemoglobin A1c 5.9 (4-6) % Calcium 8.8 D (8.4-10.2) mg/dL AST 13 (5-40) units/L ALT 17 (7-56) units/L Alkaline Phosphatase 48 (35-129) units/L Total Protein 5.4 L D (6.3-8.2) g/dL Albumin 3.9 (3.9-5) g/dL Calcium panel 01/10/22 Range/Units 08:27 Calcium 8.8 D (8.4-10.2) mg/dL Albumin 3.9 (3.9-5) g/dL Pituitary panel 01/10/22 Range/Units 08:27 Sodium 146 H (137-145) mmol/L Potassium 4.8 (3.6-5.0) mmol/L Chloride 111.5 H (98-107) mmol/L Carbon Dioxide 29 (22-30) mmol/L BUN 13 (9-20) mg/dL Creatinine 1.1 (0.8-1.3) mg/dL Glucose 108 H (75-100) mg/dL Calcium 8.8 D (8.4-10.2) mg/dL Adrenal panel 01/10/22 Range/Units 08:27 Sodium 146 H (137-145) mmol/L Potassium 4.8 (3.6-5.0) mmol/L Chloride 111.5 H (98-107) mmol/L Carbon Dioxide 29 (22-30) mmol/L BUN 13 (9-20) mg/dL Creatinine 1.1 (0.8-1.3) mg/dL Glucose 108 H (75-100) mg/dL Calcium 8.8 D (8.4-10.2) mg/dL Total Bilirubin 0.40 (0.1-1.2) mg/dL AST 13 (5-40) units/L ALT 17 (7-56) units/L Alkaline Phosphatase 48 (35-129) units/L Total Protein 5.4 L D (6.3-8.2) g/dL Albumin 3.9 (3.9-5) g/dL
[2022-01-11] MEDS: INSULIN LISPRO 100 UNIT/ML SUB-Q SCH ×4 (05:59→18:30)
--- NOTE | 2022-01-11 09:59 | Progress Note ---
Assessment and Plan Assessment and plan: 61-year-old male with past medical history of hypertension and umbilical hernia surgery followed by elevation and history of small bowel obstruction recently comes in for abdominal pain and nausea. Abdominal pain is about 8 on a scale of 1-10. Intermittent in nature. Last bowel movement was 1 day ago. Unlikely hernia repair was performed approximately 4 years ago. Had 1 episode of small bowel obstruction few months ago. Patient not able to review the timeline. Reports nausea but no vomiting. No fever or chills. No dysuria. No altered sensorium. No chest pain. - Past Medical History --Hypertension: Yes - Surgical History --Past Surgical History?: Yes --Additional Surgical History: Umbilical hernia repair 4 years ago at [facility] - Social History --Smoking Status: Smoker, Current Status Unknown --Substance Use Type: None - Imaging and Cardiology Abdominal x-ray: report reviewed CT scan - abdomen: report reviewed Imaging and Cardiology: Abdomen/pelvis CT scan Moderate grade mild mid small bowel obstruction without a cause seen likely related to adhesions No CT evidence of acute appendicitis Abdominal x-ray Nasogastric tube terminates in the fundus of the stomach. Persistent partial small bowel obstruction pattern. 01/10: KUB- IMPRESSION: 1. Interval improvement in small bowel obstruction. per surgery recommendation: 61-year-old male with acute small bowel obstruction likely due to adhesive disease due to history and previous episode. Patient is afebrile and stable showing no gross clinical signs of bowel ischemia or perforation. We will cont inue conservative management with NG tube. Repeat abdominal x-ray in a.m. and continue to follow. If patient decompensates or has minimal improvement over the next 48 to 72 hours surgical intervention should be strongly considered. Pathology and treatment options were discussed with the patient expressed understanding. 01/10: Patient seen and examined had extensive discussion with the patient discussed recommendations by surgeon as noted above. KUB today shows interval improvement in small bowel obstruction. Encourage patient to ambulate in the room within reason. We will continue to monitor and hopefully will transition off the NG tube on diet as soon as possible. 01/11: Small bowel series as recommended by surgery. Await review of records. Patient reporting nausea this morning. Continue management per surgical recommendation. Plan discussed with the patient in detail (1) Small bowel obstruction Current Visit: Yes Status: Acute Plan to address problem: NG tube to low Gomco suction Surgery consulted Possible additions causing small bowel obstruction Conservative management for now Surgery if necessary for lysis of additions (2) Hypernatremia Current Visit: Yes Status: Acute Plan to address problem: IV fluids for now (3) Hyperglycemia Current Visit: Yes Status: Acute Plan to address problem: Mild No history of diabetes Coverage for now Check hemoglobin A1c (4) Polycythemia due to fall in plasma volume Current Visit: Yes Status: Acute Plan to address problem: IV fluids for now (5) Hypertension Current Visit: Yes Status: Chronic Qualifiers: Hypertension type: primary hypertension Qualified Code(s): I10 - Essential (primary) hypertension Plan to address problem: Catapres patch if necessary Patient is n.p.o. (6) DVT prophylaxis Current Visit: Yes Status: Acute Plan to address problem: On heparin and GI prophylaxis (7) Advance care planning Current Visit: Yes Status: Acute Plan to address problem: Disease education conducted, care plan discussed, prognosis and diagnosis discussed. Patient is full code. Patient acknowledges understanding with care plan. +30 minutes. History Interval history: Patient seen and examined reports improvement in abdominal discomfort reports that he has had multiple gas episode actually had a bowel movement today according to the patient although small. [place] nauseous this morning following small bowel series. Hospitalist Physical - Physical exam Narrative exam: VITAL SIGNS: Reviewed. GENERAL: The patient appears normally developed, NG tube in place. Vital signs as documented. HEAD: No signs of head trauma. EYES: Pupils are equal. Extraocular motions intact. EARS: Hearing grossly intact. MOUTH: Oropharynx is normal. NECK: No adenopathy, no JVD. CHEST: Chest with clear breath sounds bilaterally. No wheezes, rales, or rhonchi. CARDIAC: Regular rate and rhythm. S1 and S2, without murmurs, gallops, or rubs. VASCULAR: No Edema. Peripheral pulses normal and equal in all extremities. ABDOMEN: Soft, non tender and non distended. No rebound or guarding, and no masses palpated. Bowel Sounds normal. MUSCULOSKELETAL: Good range of motion of all major joints. Extremities without clubbing, cyanosis or edema. NEUROLOGIC EXAM: Alert and oriented x 3 No focal sensory or strength deficits. Speech normal. Follows commands. PSYCHIATRIC: Mood normal. SKIN: detail exam as documented in skin assessment - Constitutional Vitals: Temp Pulse Resp BP Pulse Ox 98.2 F 50 L 18 142/88 96 01/11/22 04:00 01/11/22 04:00 01/11/22 04:00 01/11/22 04:00 01/11/22 04:00 General appearance: Present: mild distress, well-nourished Results - Labs CBC & Chem 7: 01/10/22 08:27 01/10/22 08:27 Labs: Laboratory Last Values WBC 6.8 K/mm3 (4.5-11.0) 01/10/22 08:27 RBC 4.99 M/mm3 (3.65-5.03) 01/10/22 08:27 Hgb 14.0 gm/dl (11.8-15.2) 01/10/22 08:27 Hct 42.3 % (35.5-45.6) 01/10/22 08:27 MCV 85 fl (84-94) 01/10/22 08:27 MCH 28 pg (28-32) 01/10/22 08: MCHC 33 % (32-34) 01/10/22 08:27 RDW 14.3 % (13.2-15.2) 01/10/22 08:27 Plt Count 227 K/mm3 (140-440) 01/10/22 08:27 Lymph % (Auto) 16.3 % (13.4-35.0) 01/10/22 08:27 [place] % (Auto) 6.3 % (0.0-7.3) 01/10/22 08:27 Eos % (Auto) 1.6 % (0.0-4.3) 01/10/22 08: Baso % (Auto) 0.8 % (0.0-1.8) 01/10/22 08:27 Lymph # (Auto) 1.1 K/mm3 (1.2-5.4) L 01/10/22 08:27 [place] # (Auto) 0.4 K/mm3 (0.0-0.8) 01/10/22 08: Eos # (Auto) 0.1 K/mm3 (0.0-0.4) 01/10/22 08:27 Baso # (Auto) 0.1 K/mm3 (0.0-0.1) 01/10/22 08:27 Add Manual Diff Complete 01/09/22 Unknown Total Counted 100 01/09/22 Unknown Seg Neutrophils % 75.0 % (40.0-70.0) H 01/10/22 08:27 Seg Neuts % (Manual) 94.0 % (40.0-70.0) H 01/09/22 Unknown Band Neutrophils % 0 % 01/09/22 Unknown Lymphocytes % (Manual) 4.0 % (13.4-35.0) L 01/09/22 Unknown Reactive Lymphs % (Man) 0 % 01/09/22 Unknown Monocytes % (Manual) 2.0 % (0.0-7.3) 01/09/22 Unknown Eosinophils % (Manual) 0 % (0.0-4.3) 01/09/22 Unknown Basophils % (Manual) 0 % (0.0-1.8) 01/09/22 Unknown Metamyelocytes % 0 % 01/09/22 Unknown Myelocytes % 0 % 01/09/22 Unknown Promyelocytes % 0 % 01/09/22 Unknown Blast Cells % 0 % 01/09/22 Unknown Nucleated RBC % Not Reportable 01/09/22 Unknown Seg Neutrophils # 5.1 K/mm3 (1.8-7.7) 01/10/22 08:27 Seg Neutrophils # Man 8.1 K/mm3 (1.8-7.7) H 01/09/22 Unknown Band Neutrophils # 0.0 K/mm3 01/09/22 Unknown Lymphocytes # (Manual) 0.3 K/mm3 (1.2-5.4) L 01/09/22 Unknown Abs React Lymphs (Man) 0.0 K/mm3 01/09/22 Unknown Monocytes # (Manual) 0.2 K/mm3 (0.0-0.8) 01/09/22 Unknown Eosinophils # (Manual) 0.0 K/mm3 (0.0-0.4) 01/09/22 Unknown Basophils # (Manual) 0.0 K/mm3 (0.0-0.1) 01/09/22 Unknown Metamyelocytes # 0.0 K/mm3 01/09/22 Unknown Myelocytes # 0.0 K/mm3 01/09/22 Unknown Promyelocytes # 0.0 K/mm3 01/09/22 Unknown Blast Cells # 0.0 K/mm3 01/09/22 Unknown WBC Morphology Not Reportable 01/09/22 Unknown Hypersegmented Neuts Not Reportable 01/09/22 Unknown Hyposegmented Neuts Not Reportable 01/09/22 Unknown Hypogranular Neuts Not Reportable 01/09/22 Unknown Smudge Cells Not Reportable 01/09/22 Unknown Toxic Granulation Not Reportable 01/09/22 Unknown Toxic Vacuolation Not Reportable 01/09/22 Unknown Dohle Bodies Not Reportable 01/09/22 Unknown Pelger-Huet Anomaly Not Reportable 01/09/22 Unknown Alvaro Rods Not Reportable 01/09/22 Unknown Platelet Estimate Consistent w auto 01/09/22 Unknown Clumped Platelets Not Reportable 01/09/22 Unknown Plt Clumps, EDTA Not Reportable 01/09/22 Unknown Large Platelets Not Reportable 01/09/22 Unknown Giant Platelets Not Reportable 01/09/22 Unknown Platelet Satelliting Not Reportable 01/09/22 Unknown Plt Morphology Comment Not Reportable 01/09/22 Unknown RBC Morphology Normal 01/09/22 Unknown Dimorphic RBCs Not Reportable 01/09/22 Unknown Polychromasia Not Reportable 01/09/22 Unknown Hypochromasia Not Reportable 01/09/22 Unknown Poikilocytosis Not Reportable 01/09/22 Unknown Anisocytosis Not Reportable 01/09/22 Unknown Microcytosis Not Reportable 01/09/22 Unknown Macrocytosis Not Reportable 01/09/22 Unknown Spherocytes Not Reportable 01/09/22 Unknown Pappenheimer Bodies Not Reportable 01/09/22 Unknown Sickle Cells Not Reportable 01/09/22 Unknown Target Cells Not Reportable 01/09/22 Unknown Tear Drop Cells Not Reportable 01/09/22 Unknown Ovalocytes Not Reportable 01/09/22 Unknown Helmet Cells Not Reportable 01/09/22 Unknown Duarte-[place] Bodies Not Reportable 01/09/22 Unknown [place] Rings Not Reportable 01/09/22 Unknown North Cells Not Reportable 01/09/22 Unknown Bite Cells Not Reportable 01/09/22 Unknown Crenated Cell Not Reportable 01/09/22 Unknown Elliptocytes Not Reportable 01/09/22 Unknown Acanthocytes (Spur) Not Reportable 01/09/22 Unknown Rouleaux Not Reportable 01/09/22 Unknown Hemoglobin C Crystals Not Reportable 01/09/22 Unknown Schistocytes Not Reportable 01/09/22 Unknown Malaria parasites Not Reportable 01/09/22 Unknown Greg Bodies Not Reportable 01/09/22 Unknown Hem Pathologist Commnt No 01/09/22 Unknown Sodium 146 mmol/L (137-145) H 01/10/22 08:27 Potassium 4.8 mmol/L (3.6-5.0) 01/10/22 08:27 Chloride 111.5 mmol/L (98-107) H 01/10/22 08:27 Carbon Dioxide 29 mmol/L (22-30) 01/10/22 08:27 Anion Gap 10 mmol/L 01/10/22 08:27 BUN 13 mg/dL (9-20) 01/10/22 08:27 Creatinine 1.1 mg/dL (0.8-1.3) 01/10/22 08:27 Estimated GFR > 60 ml/min 01/10/22 08:27 BUN/Creatinine Ratio 12 % 01/10/22 08:27 Glucose 108 mg/dL (75-100) H 01/10/22 08:27 POC Glucose 101 mg/dL (70-105) 01/11/22 05:57 Hemoglobin A1c 5.9 % (4-6) 01/10/22 08:27 Calcium 8.8 mg/dL (8.4-10.2) D 01/10/22 08:27 Total Bilirubin 0.40 mg/dL (0.1-1.2) 01/10/22 08:27 AST 13 units/L (5-40) 01/10/22 08:27 ALT 17 units/L (7-56) 01/10/22 08:27 Alkaline Phosphatase 48 units/L (35-129) 01/10/22 08:27 Total Protein 5.4 g/dL (6.3-8.2) L D 01/10/22 08:27 Albumin 3.9 g/dL (3.9-5) 01/10/22 08:27 Albumin/Globulin Ratio 2.6 % 01/10/22 08:27 Urine Color Yellow (Yellow) 01/09/22 Unknown Urine Turbidity Clear (Clear) 01/09/22 Unknown Specific [place] (Man) 1.015 (1.003-1.030) 01/09/22 Unknown Ur Protein (Man) 1+ mg/dL (Negative) 01/09/22 Unknown Ur Ketones (Man) Negative (Negative) 01/09/22 Unknown Ur Nitrite (Man) Negative (Negative) 01/09/22 Unknown Ur Reducing Substances Not Reportable 01/09/22 Unknown Urine Bilirubin (Man) Negative (Negative) 01/09/22 Unknown Urine Ictotest Not Reportable 01/09/22 Unknown Leukocyte Esterase (Man) Negative (Negative) 01/09/22 Unknown Urine WBC (Auto) < 1.0 /HPF (0.0-6.0) 01/09/22 Unknown Urine RBC (Auto) 2.0 /HPF (0.0-6.0) 01/09/22 Unknown Urine RBC (Manual) Negative (Negative) 01/09/22 Unknown Urine Mucus Few /HPF 01/09/22 Unknown Poe/IV: Voiding Method Toilet Active Medications - Current Medications Current Medications: Generic Name Dose Route Start Last Admin Trade Name Freq PRN Reason Stop Dose Admin Acetaminophen 650 mg 01/09/22 17:30 Acetaminophen [address] Q4H PRN Pain MILD(1-3)/Fever >100.5/KAN Heparin Sodium (Porcine) 5,000 unit 01/09/22 22:00 01/10/22 22:27 Heparin 5,000 Unit/1 Ml Vial SUB-Q 5,000 unit Q12HR BESS Administration Lactated Ringer's 1,000 mls @ 125 mls/hr 01/09/22 16:30 01/10/22 22:27 Lactated Ringers IV 125 mls/hr DIRECT BESS Administration Insulin Human Lispro 0 unit 01/10/22 07:00 01/11/22 05:59 Insulin Lispro 100 Unit/Ml SUB-Q Not Given Q6HR BESS Protocol Morphine Sulfate 2 mg 01/09/22 17:00 Morphine 2 Mg/1 Ml Inj IV Q4H PRN Pain, Moderate (4-6) Ondansetron HCl 4 mg 01/09/22 17:30 Ondansetron 4 Mg/2 Ml Inj IV Q8H PRN Nausea And Vomiting Sodium Chloride 10 ml 01/09/22 22:00 01/10/22 22:29 Sodium Chloride 0.9% 10 Ml Flush Syringe IV 10 ml BID BESS Administration Sodium Chloride 10 ml 01/09/22 16:35 Sodium Chloride 0.9% 10 Ml Flush Syringe IV 01/14/22 16:34 PRN PRN LINE FLUSH
--- NOTE | 2022-01-11 10:32 | Fluoroscopy Report ---
SMALL BOWEL FOLLOW-THROUGH HISTORY: Small bowel obstruction. TECHNIQUE: Single contrast barium technique utilized to evaluate the small bowel. FINDINGS: Correlation is made with CT abdomen pelvis with contrast 01/09/2022. Small bowel transit time was 30 minutes which is normal. A few mildly dilated loops of mid small bowel in the mid and left a bdomen measure up to 5 cm in diameter. Distal small bowel loops are decompressed measuring 1.5 cm. Th ere is suggestion of a transition point in the left mid abdomen which probably represents an adhesion and correlates with the abnormality seen on CT.. The terminal ileum is normal in appearance. IMPRESSION: Transit time of oral contrast in the small bowel loops is within normal limits at 30 min utes. There are a few mildly dilated loops of small bowel in the left abdomen as described. Findings remain suggestive of an adhesion. FLUOROSCOPIC TIME: 0.8 minutes NUMBER OF FLUOROSCOPIC IMAGES: 4 Signer Name: Julio Fleming Jr, MD Signed: 01/11/2022 10:28 AM Workstation Name: [id number]
[2022-01-11] MEDS: HEPARIN 5,000 UNIT/1 ML VIAL SUB-Q SCH ×2 (10:53→21:48)
[2022-01-11] MEDS: LACTATED RINGERS 1,000 ML IV SCH (12:13)
--- NOTE | 2022-01-11 13:38 | Progress Note ---
Assessment and Plan 61-year-old male with small bowel obstruction that is clinically resolving. Patient has findings consistent with chronic intra-abdominal adhesive disease that is present however at this time not clinically obstructing. Discussed results with patient who would like to be started on diet and see how he feels. If patient tolerates diet possibility to discharge tomorrow. If patient does not tolerate diet will discussed with patient diagnostic laparoscopy. Patient to start full liquids today and advance tomorrow. Of note high NG tube output likely due to the fact that his NG tube appeared to be past the pylorus on imaging. Subjective Date of service: 01/11/22 Narrative: No acute events overnight. Patient says that he continues to pass flatus. Patient denies any abdominal pain. Patient is small bowel follow series today that showed contrast getting to his colon within 30 minutes, however there was an area of small bowel dilation consistent with a possible adhesion but there was no obstruction. Objective Vital Signs - 12hr 01/11/22 01/11/22 01/11/22 04:00 10:20 10:34 Temperature 98.2 F 98.1 F Pulse Rate 50 L 69 Respiratory 18 17 22 Rate Blood Pressure 142/88 129/84 O2 Sat by Pulse 96 97 95 Oximetry - General physical appearance well developed, no distress, no pain - Eyes PERRL - ENT no hearing loss - Respiratory normal expansion, normal respiratory effort - Abdomen soft, not tender, not distended - Psychiatric oriented to time, oriented to person - Labs 01/10/22 08:27 01/10/22 08:27
[2022-01-12] MEDS: LACTATED RINGERS 1,000 ML IV SCH (06:15)
[2022-01-12] MEDS: INSULIN LISPRO 100 UNIT/ML SUB-Q SCH ×3 (06:17→12:40)
[2022-01-12] MEDS: HEPARIN 5,000 UNIT/1 ML VIAL SUB-Q SCH (09:37)
--- NOTE | 2022-01-12 10:42 | Discharge Summary ---
Providers - Providers Date of Admission: 01/09/22 16:35 Date of discharge: 01/12/22 Attending physician: IGNACIA LOMELI MD 01/09/22 09:59 Consult to Physician [CONS] Stat Comment: Consulting Provider: NIKI ANTHONY Physician Instructions: Reason For Exam: small bowel obstruction Primary care physician: MASK FORMER Hospitalization Reason for admission: Small bowel obstruction Condition: Stable Pertinent studies: Reviewed. Procedures: None. Hospital course: Patient is a 61-year-old male past medical history of hypertension, tobacco dependence, and obesity who presented to the ED with periumbilical pain radiating to his right lower quadrant that acutely started the night prior to presentation. Patient described the pain as pressure-like and constant with associated nausea but he denied vomiting, fevers, or chills. The pain was described as 8/10. In the ED, the patient was found be hemodynamically stable with labs that were relatively unremarkable. Patient underwent CT abdomen and pelvis that revealed a moderate grade small bowel obstruction was likely related to adhesions; no CT evidence of acute appendicitis. General surgery was consulted for further management. Patient underwent goal-directed therapy with NG tube placement and low intermittent suction. Patient underwent small bowel series that revealed significant improvement of his small bowel obstruction. The patient has since had his NG tube discontinued and is able to tolerate p.o. intake. The patient will not need to follow with general surgery since no surgical procedure was performed. Patient expresses understanding. Patient is medically clear for discharge. Disposition: 01 HOME / SELF CARE / HOMELESS Final Discharge Diagnosis (Prints w/discharge instructions): Small bowel obstruction, hypernatremia, hyperglycemia, polycythemia, hypertension, obesity. Time spent for discharge: 45 min Core Measure Documentation - Palliative Care Palliative Care/ Comfort Measures: Not Applicable - Core Measures Any of the following diagnoses?: none Exam - Constitutional Vitals: Temp Pulse Resp BP Pulse Ox 98.8 F 56 L 20 120/81 95 01/11/22 22:34 01/11/22 22:34 01/11/22 22:34 01/11/22 22:34 01/11/22 22:34 General appearance: Present: no acute distress, well-nourished, obese - EENT Eyes: Present: PERRL, EOM intact ENT: hearing intact, clear oral mucosa, dentition normal - Neck Neck: Present: supple, normal ROM - Respiratory Respiratory effort: normal Respiratory: bilateral: CTA - Cardiovascular Rhythm: regular Heart Sounds: Present: S1 & S2 - Extremities Extremities: no ischemia, pulses intact, pulses symmetrical, No edema, normal temperature, normal color, Full ROM Peripheral Pulses: within normal limits - Abdominal General gastrointestinal: Present: soft, non-tender, non-distended, normal bowel sounds Male genitourinary: Present: deferred - Rectal Rectal Exam: deferred - Integumentary Integumentary: Present: clear, warm, dry - Musculoskeletal Musculoskeletal: strength equal bilaterally - Psychiatric Psychiatric: appropriate mood/affect, intact judgment & insight, memory intact, cooperative - Neurologic Neurologic: CNII-XII intact, moves all extremities - Allied Health Allied health notes reviewed: nursing Plan Activity: no restrictions Diet: low salt Additional Instructions: Patient is a 61-year-old male past medical history of hypertension, tobacco dependence, and obesity who presented to the ED with periumbilical pain radiating to his right lower quadrant that acutely started the night prior to presentation. Patient described the pain as pressure-like and constant with associated nausea but he denied vomiting, fevers, or chills. The pain was described as 8/10. In the ED, the patient was found be hemodynamically stable with labs that were relatively unremarkable. Patient underwent CT abdomen and pelvis that revealed a moderate grade small bowel obstruction was likely related to adhesions; no CT evidence of acute appendicitis. General surgery was consulted for further management. Patient underwent goal-directed therapy with NG tube placement and low intermittent suction. Patient underwent small bowel series that revealed significant improvement of his small bowel obstruction. The patient has since had his NG tube discontinued and is able to tolerate p.o. intake. The patient will not need to follow with general surgery since no surgical procedure was performed. Patient expresses understanding. Patient is medically clear for discharge. Care Plan Goals: Patient is medically clear for discharge. Assessment: Patient is a 61-year-old male past medical history of hypertension, tobacco dependence, and obesity who presented to the ED with periumbilical pain radiating to his right lower quadrant that acutely started the night prior to presentation. Patient described the pain as pressure-like and constant with associated nausea but he denied vomiting, fevers, or chills. The pain was described as 8/10. In the ED, the patient was found be hemodynamically stable with labs that were relatively unremarkable. Patient underwent CT abdomen and pelvis that revealed a moderate grade small bowel obstruction was likely related to adhesions; no CT evidence of acute appendicitis. General surgery was consulted for further management. Patient underwent goal-directed therapy with NG tube placement and low intermittent suction. Patient underwent small bowel series that revealed significant improvement of his small bowel obstruction. The patient has since had his NG tube discontinued and is able to tolerate p.o. intake. The patient will not need to follow with general surgery since no surgical procedure was performed. Patient expresses understanding. Patient is medically clear for discharge. Follow up with: PRIMARY MD NATHALIA [Primary Care Provider] - 3-5 Days
[2022-01-12 13:19] VITALS: BP 123/72
--- NOTE | 2022-01-12 13:57 | Progress Note ---
Assessment and Plan 61-year-old male with small bowel obstruction that is clinically resolving. Patient has findings consistent with chronic intra-abdominal adhesive disease that is present however at this time not clinically obstructing. Discussed results with patient who would like to be started on diet and see how he feels. Patient with discharge from general surgery perspective. Patient advised to advance diet as tolerated. Patient also counseled on if he has similar symptoms in the future he should consider diagnostic laparoscopy to find the point of obstruction which will hopefully help with his chronic symptoms. No need to follow-up with surgery in the near future. Subjective Date of service: 01/12/22 Narrative: No acute events overnight. Patient had NG tube removed was started on full liquids after having a negative small bowel follow-through for obstruction. However, due to persistent dilation of segment of small bowel there thought to be some adhesive disease. Patient tolerated full liquids that any difficulty. He said he is having bowel movements. He denies any nausea, vomiting, or abdominal pain. Objective Vital Signs - 12hr 01/12/22 01/12/22 01/12/22 04:45 10:00 10:48 Temperature 98.3 F 98.1 F Pulse Rate 49 L 52 L Respiratory 18 22 Rate Blood Pressure 97/65 123/72 O2 Sat by Pulse 93 99 98 Oximetry - General physical appearance well developed, no distress, no pain - Eyes PERRL - ENT no hearing loss - Respiratory normal expansion, normal respiratory effort - Abdomen soft, not tender, not distended, not rebound, not guarding - Neurologic normal coordination - Psychiatric oriented to time, oriented to person - Labs 01/10/22 08:27 01/10/22 08:27
== END 2022-01-12 16:18 | disposition home or self-care (01) | DRG 389 ==
LOC: ED 23:34 → 3A 01-09 16:35
PROVIDERS: ADMIT Internal Medicine; ATTEND Student in an Organized Health Care Education/Training Program
PROC: 0D9670Z Drainage of Stomach with Drainage Device, Via Natural or Artificial Opening (ICD-10-PCS; principal; 2022-01-09)
DX: K56.50 Intestinal adhesions [bands], unspecified as to partial versus complete obstruction (principal); E87.0 Hyperosmolality and hypernatremia; D75.1 Secondary polycythemia; I10 Essential (primary) hypertension; F17.200 Nicotine dependence, unspecified, uncomplicated; R73.9 Hyperglycemia, unspecified; E66.9 Obesity, unspecified; Z68.31 Body mass index [BMI] 31.0-31.9, adult; Z88.8 Allergy status to other drugs, medicaments and biological substances; Z82.49 Family history of ischemic heart disease and other diseases of the circulatory system
CPT/HCPCS: 36415; 74018; 74177; 74248; 80053; 81001; 82962; 83036; 85007; 85025; 87641; G0378; J3490; J1644; J1885; J2270; J2405; J7030; J7042; J7120; Q9963; Q9967